=== PATIENT | male | born 2000 | race Two or more races ===

== ENCOUNTER 2024-10-12 11:12 | Emergency (ER) | payer SELFPAY ==
[2024-10-12] MEDS: Sodium Chloride 0.9% 1,000 ML IV ONE (15:38)
[2024-10-12] MEDS: Ondansetron 4 MG/2 ML SDV IVPUSH ONE (15:38)
[2024-10-12 15:45] LABS: BASOPHILS ABSOLUTE AUTO 0.05 K/uL (0.00-0.20); BASOPHILS PERCENT AUTO 0.7 % (0.0-1.0); EOSINOPHILS ABSOLUTE AUTO 0.32 K/uL (0.00-0.45); EOSINOPHILS PERCENT AUTO 4.3 % (0.0-6.0); HEMATOCRIT 35.6 % (42.0-52.0); IMMATURE GRAN ABSOLUTE AUTO 0.02 K/uL (0.00-0.05); IMMATURE GRAN PERCENT AUTO 0.3 % (0.0-0.4); LYMPHOCYTES ABSOLUTE AUTO 1.48 K/uL (1.00-4.80); LYMPHOCYTES PERCENT AUTO 19.9 % (24.0-44.0); MEAN CORPUSCULAR HEMOGLOBIN 17.6 pg (28.0-32.0); MEAN CORPUSCULAR HGB CONC 28.1 g/dL (32.0-36.0); MEAN CORPUSCULAR VOLUME 62.8 fL (83.0-99.0); MONOCYTES ABSOLUTE AUTO 0.49 K/uL (0.00-0.80); MONOCYTES PERCENT AUTO 6.6 % (0.0-8.0); NEUTROPHILS ABSOLUTE AUTO 5.08 K/uL (1.80-7.70); NEUTROPHILS PERCENT AUTO 68.2 % (41.0-71.0); PLATELET COUNT,PLT 338 K/uL (150-400); RED BLOOD CELL COUNT 5.67 M/uL (4.52-5.90); WHITE BLOOD CELL COUNT,WBC 7.44 K/uL (3.9-11.3)
[2024-10-12 16:06] LABS: A/G RATIO 1.1 (0.9-1.6); ALBUMIN 4.1 g/dL (3.4-5.0); BILIRUBIN TOTAL 0.6 mg/dL (0.2-1.0); CALCIUM 9.2 mg/dL (8.5-10.1); CARBON DIOXIDE,CO2 26.6 mmol/L (21.0-32.0); CREATININE 1.3 mg/dL (0.8-1.3); EST CRCL DRUG DOSING (CG) 80.51 mL/min; MAGNESIUM 2.1 mg/dL (1.8-2.4); POTASSIUM,K 3.6 mmol/L (3.5-5.1); PROTEIN TOTAL,TP 7.7 g/dL (6.4-8.2)
[2024-10-12] MEDS: Iopamidol 755 MG/ML 500 ML Multipack Bottle IVPUSH STA (16:14)
== END 2024-10-12 17:08 | disposition home or self-care (01) ==
LOC: MW.ED 11:12
DX: K52.9 Noninfective gastroenteritis and colitis, unspecified (principal)
CPT/HCPCS: 36415; 74177; 80053; 83690; 83735; 85025; 87428; 96361; 96374; 99284; J2405; J7030; Q9967; 99283